=== PATIENT | female | born 1965 ===

== ENCOUNTER 2018-03-28 17:04 | Emergency (ER) | payer MEDICAID, OTHER ==
[2018-03-28 17:34] VITALS: BP 118/62; PULSE 80; RESP 18; TEMP 98; O2SAT 100; BMI 23.0
[2018-03-28] MEDS ORDERED: Lidocaine 5% Patch TD STA (17:57)
--- NOTE | 2018-03-28 18:12 | ED PDOC ---
Arrival/HPI - General Chief Complaint: Upper Extremity Problem/Injury Time Seen by Provider: 03/28/18 17:35 Historian: Patient - History of Present Illness Narrative History of Present Illness (Text): 03/28/18 18:09 52-year-old female complains of 2 day history of atraumatic left shoulder pain. She reports having surgery to the left shoulder 10 years ago due to tendinitis. She reports that she is having difficulty moving her left shoulder due to pain. Otherwise reports no numbness, injury, neck pain, back pain, or other joint pain. Has no additional complaints. PMD Pedro Past Medical History - Infectious Disease Hx of Infectious Diseases: None - Tetanus Immunization Tetanus Immunization: Unknown - Reproductive Menopause: Yes - Past Medical History Past Medical History: Non-Contributing - Cardiac Hx Hypertension: Yes - Psychiatric Hx Substance Use: No - Surgical History Hx Hysterectomy: Yes - Anesthesia Hx Anesthesia: Yes Hx Anesthesia Reactions: No Hx Malignant Hyperthermia: No - Suicidal Assessment Feels Threatened In Home Enviroment: No Family/Social History Family/Social History: No Known Family HX Smoking Status: Unknown If Ever Smoked Hx Alcohol Use: No Hx Substance Use: No Hx Substance Use Treatment: No Allergies/Home Meds Allergies/Adverse Reactions: Allergies No Known Allergies Allergy (Verified 03/28/18 17:27) Home Medications: Home Meds Medication Instructions Recorded Confirmed Lisinopril [Zestril] 10 mg PO DAILY 03/28/18 03/28/18 Review of Systems - Review of Systems Constitutional: absent: Fatigue, Fevers Musculoskeletal: Arthralgias. absent: Back Pain, Neck Pain, Joint Swelling, Myalgias Skin: absent: Rash, Pruritis, Skin Lesions Neurological: absent: Headache, Dizziness Physical Exam Vital Signs Temp Pulse Resp BP Pulse Ox 03/28/18 17:10 98 F 80 18 118/62 100 Temperature: Afebrile Blood Pressure: Normal Pulse: Regular Respiratory Rate: Normal Appearance: Positive for: Well-Appearing, Non-Toxic, Comfortable Pain Distress: Moderate Mental Status: Positive for: Alert and Oriented X 3 - Systems Exam Head: Present: Atraumatic, Normocephalic Neck: Present: Normal Range of Motion. No: MIDLINE TENDERNESS, Paraspinal Tenderness Back: Present: Normal Inspection. No: Midline Tenderness, Paraspinal Tenderness Upper Extremity: Present: Normal ROM (to the rest of the extremities), NORMAL PULSES, Tenderness (+tenderness to the L shoulder with limited ROM secondary to pain), Neurovascularly Intact, Capillary Refill < 2s, Norm 2-Pt Discrimination. No: Edema, Temperature Abnormalties, Deformity Lower Extremity: Present: Normal Inspection, Normal ROM. No: Edema Neurological: Present: GCS=15, CN II-XII Intact, Speech Normal, Motor Func Grossly Intact, Normal Sensory Function Skin: Present: Warm, Dry, Normal Color. No: Rashes Psychiatric: Present: Alert, Oriented x 3, Normal Insight, Normal Concentration Medical Decision Making ED Course and Treatment: 03/28/18 18:12 Plan : - XR L shoulder - Toradol IM - Lidoderm patch XR L shoulder : no fracture, no dislocation, as read by PA XR results d/w the patient. Sling applied. Advised rest, ice and to wear sling for comfort. Advised to follow up with primary care physician and with ortho in 1-2 days without fail. Advised to take medication as prescribed. Return to the emergency room at any time for any new or worsening symptoms. Patient states she fully agrees with and understands discharge instructions. States that she agrees with the plan and disposition. Verbalized and repeated discharge instructions and plan. I have given the patient opportunity to ask any additional questions. - RAD Interpretation Radiology Orders: 03/28/18 17:57 SHOULDER LEFT [RAD] Stat - Medication Orders Current Medication Orders: Discontinued Medications Ketorolac Tromethamine (Toradol) 60 mg IM STAT STA Stop: 03/28/18 17:58 Last Admin: 03/28/18 18:06 Dose: 60 mg MAR Pain Assessment Document 03/28/18 18:06 [facility] (Rec: 03/28/18 18:06 [id number]) Pain Reassessment Is this a pain reassessment? No Sleep Is patient sleeping during reassessment? No Presence of Pain Presence of Pain Yes Pain Scale Used Protocol: PSCALES Pain Scale Used Numeric Location Left, Right or Bilateral Left Pain Location Body Site Shoulder Description Description Constant Intensity of Pain at present 6 IM Administration Charges Document 03/28/18 18:06 [facility] (Rec: 03/28/18 18:06 [id number]) Injection Site MAR Injection Site Left Deltoid Charges for Administration # of IM Administrations 1 Lidocaine (Lidoderm) 1 ea TD STAT STA Stop: 03/28/18 17:58 Last Admin: 03/28/18 18:06 Dose: 1 ea MAR Transdermal Patch Site Document 03/28/18 18:06 [facility] (Rec: 03/28/18 18:06 [id number] Transdermal Patch Site Transdermal Patch Site Left Shoulder - PA / FITTINGS FINISHER / Resident Statement MD/DO has reviewed & agrees with the documentation as recorded. Disposition/Present on Arrival - Present on Arrival Any Indicators Present on Arrival: No History of DVT/PE: No History of Uncontrolled Diabetes: No Urinary Catheter: No History of Decub. Ulcer: No History Surgical Site Infection Following: None - Disposition Have Diagnosis and Disposition been Completed?: Yes Diagnosis: Left shoulder pain Disposition: HOME/ ROUTINE Disposition Time: 19:00 Patient Plan: Discharge Condition: STABLE Discharge Instructions (ExitCare): Shoulder Pain (DC) Additional Instructions: Thank you for letting us take care of you today. You were treated for L shoulder pain. The emergency medical care you received today was directed at your acute symptoms. If you were prescribed any medication, please fill it and take as directed. It may take several days for your symptoms to resolve. Return to the Emergency Department if your symptoms worsen, do not improve, or if you have any other problems. Please contact your doctor in 2 days for re-evaluation and follow up / or call one of the physicians/clinics you have been referred to that are listed on the Patient Visit Information form that is included in your discharge packet. Bring any paperwork you were given at discharge with you along with any medications you are taking to your follow up visit. Our treatment cannot replace ongoing medical care by a primary care provider (PCP) outside of the emergency department. Thank you for allowing the [facility] team to be part of your care today. If you had an X-Ray : A Radiologist will review the ED reading if any change in treatment is needed we will contact you. Prescriptions: Lidocaine 5% [Lidoderm] 1 ea TD Q12H PRN #20 patch PRN Reason: Pain, Moderate (4-7) Meloxicam [Mobic] 15 mg PO DAILY #20 tab Referrals: Bonnie Vasquez DO [Primary Care Provider] - Follow up with primary Kj Mendez DO [Staff Provider] - Follow up with primary Forms: DNA Guide (Samoan), WORK NOTE
--- NOTE | 2018-03-29 09:35 | RAD ---
Date of service: 03/28/2018 PROCEDURE: Radiographs of the Left Shoulder HISTORY: pain COMPARISON: No prior. FINDINGS: BONES: Normal. No fracture. JOINTS: There is wide separation of the distal clavicle and acromion measuring 22 mm. This is probably the result of previous injury or bony erosion. The glenohumeral joint is unremarkable SOFT TISSUES: Normal. OTHER FINDINGS: None. IMPRESSION: There is wide separation of the distal clavicle and acromion measuring 22 mm. This is probably the result of previous injury or bony erosion. The glenohumeral joint is unremarkable
--- NOTE | 2018-03-29 10:16 | CARD ---
APPROVED REPORT Date of service: 03/28/2018 EKG Measurement Heart [id number] <Conclusion> Normal sinus rhythm Possible Left atrial enlargement Borderline ECG
== END 2018-03-28 19:10 | disposition home or self-care (01) ==
LOC: ED 17:04
DX: M25.512 Pain in left shoulder (principal); I10 Essential (primary) hypertension
CPT/HCPCS: 73030; 93005; 96372; 99282; J1885